=== PATIENT | female | born 1955 | race Caucasian/White ===

== ENCOUNTER → 2024-09-13 | Outpatient (CLI) | payer MEDICARE, SELFPAY ==
--- NOTE | 2024-09-13 16:22 | BI_ITS ---
MAMMOGRAPHY - BILATERAL SCREENING REASON FOR EXAM: Female, 69 years old. Routine annual screening examination. PERTINENT HISTORY: Sister with breast cancer. Mother with breast cancer. TECHNIQUE: Digital bilateral breast patel (3D mammographic acquisition) in the CC and MLO projections. 2-D mediolateral oblique (MLO) and craniocaudad (CC) views of both breasts were obtained. CAD: Full Field Digital Mammography with Computer Added Detection was performed. COMPARISON: Comparison is made with prior outside examination of February 20, 2023. FINDINGS: Breast Composition: There are scattered areas of fibroglandular density. There are no dominant masses or suspicious calcifications. Stable bilateral fat containing axillary lymph nodes. No other significant abnormalities are identified. There has been no significant change since the prior study. BI/SCRN MAMM (CAD)W/PATEL BILAT IMPRESSION: Stable bilateral screening mammogram. Yearly follow-up mammogram recommended. (A) ASSESSMENT CATEGORY: BIRADS Category 2: Benign. A letter regarding these results will be sent to the patient by the facility within 30 days. Approximately 10% of breast cancers are not detected by mammography. A normal mammogram should not delay biopsy of a clinically suspicious abnormality. [id number] Electronically Signed: Alex Acosta MD at 9:35 EST ,
== END | disposition home or self-care (01) ==
LOC: OPBI 16:20
PROVIDERS: PCP Family Medicine; Referring Provider Family Medicine; Visit Provider Family Medicine
DX: Z12.31 Encounter for screening mammogram for malignant neoplasm of breast (principal); Z80.3 Family history of malignant neoplasm of breast
CPT/HCPCS: 77063; 77067

== ENCOUNTER → 2024-12-06 | Outpatient (CLI) | payer MEDICARE, SELFPAY ==
[2024-12-06 15:17] LABS: Absolute Lymphocyte Count 1.34 X10^3/uL (0.83-4.51); Absolute Neutrophil Count 3.2 X10^3/uL (2.0-7.7); Basophil# 0.01 X10^3/uL; Basophil% 0.2 % (0-1); Eosinophil# 0.17 X10^3/uL; Eosinophils% 3.2 % (0-5); Hematocrit 43.9 % (37-47); Hemoglobin 14.7 g/dL (12.0-15.0); Lymphocyte # 1.34 X10^3/ul (0.83-4.51); Lymphocyte % 25.4 % (19-41); Mean Corp Hgb Conc 33.5 g/dL (32-36); Mean Corpuscular Hgb 29.6 pg (27.0-32.0); Mean Corpuscular Volume 88.3 fL (81-99); Mean Platelet Vol. 9.9 fl (6.2-12.0); Monocyte# 0.57 X10^3/uL; Monocyte% 10.8 % (0-10); NRBC Flagged by Analyzer 0 % (0-5); Neutrophil # 3.17 X10^3/uL (2.7-7.7); Neutrophil % 60.2 % (47-70); Platelet Count 245 K/mm3 (150-450); RBC Distribution Width CV 13.2 % (11.6-14.6); RBC Distribution Width SD 42.8 fl (35.1-43.9); Red Blood Count 4.97 M/mm3 (4.2-5.4); White Blood Count 5.3 K/mm3 (4.4-11.0)
[2024-12-06 20:10] LABS: Anion Gap 12 (5-15); BUN 15 mg/dL (4-19); BUN/Creat Ratio 18.3 RATIO (10-20); Carbon Dioxide 23.2 mmol/L (21.0-32.0); Chloride 105 mmol/L (98-108); Cholesterol 239 mg/dL (<=200); EST Glomerular Filtration Rate 79 (>60); Glucose 80 mg/dL (70-99); High Density Lipoprotein 62 mg/dL; Low Density Lipoprotein Calc. 164 mg/dL; Sodium Level 139 mmol/L (133-145); Triglycerides 62 mg/dL; Very Low Density Lipoprotein 12 mg/dL (5-40); Vitamin D,25 Hydroxy 29.9 ng/mL (30-100); cholesterol:hdl ratio screen 3.83
== END | disposition home or self-care (01) ==
PROVIDERS: PCP Family Medicine; Referring Provider Family Medicine; Visit Provider Family Medicine
DX: Z00.00 Encounter for general adult medical examination without abnormal findings (principal)
CPT/HCPCS: 36415; 80048; 80061; 82306; 85025

== ENCOUNTER → 2025-01-05 | Outpatient (CLI) | payer MEDICARE, SELFPAY ==
--- NOTE | 2025-01-05 13:47 | BD_ITS ---
PROCEDURE: DEXA BONE DENSITY STUDY 01/05/2025 REASON FOR EXAM: F, age 69 y/o . Postmenopausal. TECHNIQUE: DXA scan of the lumbar spine and both hips using make and model. REFERENCE LINKS: ISCD Adult Positions COMPARISON: None FINDINGS: BMD and T-SCORES Lumbar spine: 0.663 g/cm2, T-Score -3.5 L1 through L4 Left femoral neck: 0 point 582 g/cm2, T-Score -2.4 Femoral neck comparison data not recommended for monitoring change. Left total hip: 0.668 g/cm2, T-Score -2.2 Right femoral neck: 0.544 g/cm2, T-Score -2.7 Femoral neck comparison data not recommended for monitoring change. Right total hip: 0.6 3 0 g/cm2, T-Score -2.6 Fracture Risk Calculation: FRAX (10-year Fracture Risk) Score: FRAX scores should never be reported in a patient with osteoporosis on DEXA or for any patient that is on bone medication. The patient doesmeet the pharmacological treatment recommendations for prevention of osteoporosis BD/Dexa Bone Density Study IMPRESSION: OSTEOPOROSIS. Recommend follow-up as clinically warranted. Reading Location: [place] [address]
== END | disposition home or self-care (01) ==
LOC: OPBD 13:45
PROVIDERS: PCP Family Medicine; Referring Provider Family Medicine; Visit Provider Family Medicine
DX: Z78.0 Asymptomatic menopausal state (principal)
CPT/HCPCS: 77080

== ENCOUNTER 2025-02-22 12:27 | Day surgery (SDC) | payer MEDICARE, SELFPAY ==
--- NOTE | 2025-02-22 12:43 | HP.PCM_ITS ---
HPI - General General Date of Service: 02/22/25 HPI Narrative ANDI WILLIAMSON, is a 69 F who presents for screening colonoscopy. Patient last colonoscopy was in 2020 at [facility] patient did have polyps at that time. Patient denies any immediate family history of colon cancer?maternal grandmother did have colon cancer but patient's mother also has had colonoscopies. Patient has bowel movements daily denies any blood. Patient denies any chronic abdominal pain/nausea/vomiting/reflux. [facility] Medical History Wears glasses Arthritis High cholesterol Heartburn Non-smoker Leg cramps History of stress test Colon cancer screening Home Medications ?Medication ?Instructions ?Recorded ?Last Taken ?Type ergocalciferol (vitamin D2) 1,250 1,250 mcg PO QWEEK 0 02/21/25 Unknown History mcg (50,000 unit) capsule (Vitamin D2) Allergy/AdvReac Type Severity Reaction Status Date / Time No Known Allergies Allergy Verified 02/22/25 13:06 Surgical History History of oophorectomy History of tonsillectomy Social History Smoking Status: Never smoker Past Medical/Surgical History Planned Operation Planned Operative Procedure(s): COLONOSCOPY Previous Hospitalizations/Surgeries HX Hospitalizations: No Any Problems With Anesthesia: No You/Your Family Experience Fever (Hyperthermia) With Anes: No Cholinesterase deficiency: No Cardiovascular Hx Heart Attack: No Hx Hypertension: No Respiratory Hx Chronic Obstructive Pulmonary Disease (COPD): No Hx Asthma: No Hx Emphysema: No Hx Sleep Apnea: No Hx Respiratory Tract Infection/Cold (presently): No Do You Snore Loudly (louder than talking or can be heard): No Do You Often Feel Tired/ Fatigued/ Sleepy Dring Daytime?: No Has Anyone Observed You Stop Breathing During Sleep?: No Result (for STOP score): Negative Smoking Status: Never smoker Neurological Hx Seizures: No Does patient have nerve stimulator: No Reproduction : No Allergies No Known Allergies Allergy (Verified 02/22/25 13:06) Discharge Is Pt Admitted From a Group Home, or a Shelter: No Who Could Help: TARUN- After D/C, Where Do you Plan to Go: Return Home Physical Exam Const alert, oriented x3 and no apparent distress HEENT normocephalic and head/scalp atraumatic Resp normal respiratory effort Cardio regular rate GI soft to palpation and non-tender; Negative for non-distended Palpation: Negative for guarding Extremity no clubbing, cyanosis or edema Skin no rashes or lesions noted Neuro CN's II-XII intact bilaterally Psych mental status grossly normal Assessment & Plan Assessment/Plan (1) Colon cancer screening: Surgery Risks - Colonoscopy I discussed with the patient the risks of the procedure: Yes Risks Include but are not Limited To: Risks include but are not limited to: Bleeding, perforation requiring further surgery, inability to complete colonoscopy requiring barium enema.
--- NOTE | 2025-02-22 13:06 | PRE.ANES_ITS ---
ASA Classification* ASA Classification ASA Classification: 2 Assessment & Plan Anesthesia* Anesthesia Assessment Anesthesia Assessment: Discussed sedation and/or anesthesia options, risks, benefits, and alternatives with patient/parents/legal guardian/POA. Questions invited. The patient/parents/legal guardian/POA seems to understand and agrees to proceed with anesthesia plan. Reviewed the physical assessment, medical history, allergy history and patient home medications list prior to surgery/procedure/anesthetic and documented any changes. Performed airway and anesthesia risk assessments. Anesthesia Type Anesthesia Type: MAC Anesthesia Focused Assessment* Airway Assessment Mouth opens: >3 cm Mallampati Score: II Focused Labs Anesthesia Preop lab: CBC WBC 5.3 K/mm3 (4.4-11.0) 12/06/24 13:12/06/24 RBC 4.97 M/mm3 (4.2-5.4) 12/06/24 13:23 12/06/24 Hgb 14.7 g/dL (12.0-15.0) 12/06/24 13:12/06/24 Hct 43.9 % (37-47) 12/06/24 13:23 12/06/24 Plt Count 245 K/mm3 (150-450) 12/06/24 13:23 12/06/24 CHEMISTRY Potassium 4.0 mmol/L (3.3-5.1) 12/06/24 13:23 12/06/24 Sodium 139 mmol/L (133-145) 12/06/24 13:23 12/06/24 BUN 15 mg/dL (4-19) 12/06/24 13:23 12/06/24 Creatinine 0.80 mg/dL (0.70-1.20) 12/06/24 13:23 12/06/24 Glucose 80 mg/dL (70-99) 12/06/24 13:23 12/06/24 COAG Pre-Assessment Diagnosis/Proposed Procedure Planned Operative Procedure(s): COLONOSCOPY Anesthesia History 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 When Was Last Pacemaker Check QUESTION #4 FULL TEXT: You/Your Family Experience fever (hyperthermia) with Anesthesia Last Oral Intake Last Oral intake: Last Oral Intake NPO since Meds taken in AM with sips of water? Meds patient instructed to take am of surgery PONV PONV - dry heat cabinet attendant: PONV - dry heat cabinet attendant Female Yes 02/21/25 12:09 HX of Motion Sickness No 02/21/25 12:09 HX of N/V After Surgery Yes 02/21/25 12:09 Non-Smoker Yes 02/21/25 12:09 Duration of Surgery greater No 02/21/25 12:09 than 60 minutes Number of Risk Factors 3 02/21/25 12:09 PONV Score Moderate Risk 02/21/25 12:09 Respiratory Assessment Respiratory Assessment - dry heat cabinet attendant: Respiratory Tract Infection Hx - dry heat cabinet attendant Hx Respiratory Tract Infection No 02/22/25 12:44 STOP Sleep Apnea STOP Sleep Apnea - dry heat cabinet attendant: STOP Sleep Apnea - dry heat cabinet attendant Hx Hypertension No 02/22/25 12:44 Hx Sleep Apnea No 02/22/25 12:44 CPAP BIPAP Do you snore loudly (louder No 02/22/25 12:44 than talking or can be heard Do you often feel tired/ No 02/22/25 12:44 fatigued/ sleepy during daytime? Has anyone observed you stop No 02/22/25 12:44 breathing during sleep? STOP Results Negative 02/22/25 12:44 QUESTION #5 FULL TEXT : Do you snore loudly (louder than talking or can be heard through closed doors)? 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 Specify any problems Hx of Preganancy in last 3 No 02/21/25 12:09 Months Nurse Filling Out Transfusion [facility] 02/21/25 12:09 & Questions: Date: 02/21/25 02/21/25 12:09 Time: 12:10 02/21/25 12:09 Patient unable to answer at this time (ie. confused, unrespo /Reproduction History /Reproductive History - dry heat cabinet attendant: /Reproductive Hx- dry heat cabinet attendant Hx Now No 02/22/25 12:44 Gestational Age (in weeks): EDC: Hx Hx Para Hx Section SAB Active Medications Active Medications: Current Medications Generic Name Dose Route Start Last Admin Trade Name Freq PRN Reason Stop Dose Admin Lactated Ringer's 1,000 mls @ 15 mls/hr 02/22/25 13:00 IV .Q48H DWIGHT PFSH Medical History Wears glasses Arthritis High cholesterol Heartburn Non-smoker Leg cramps History of stress test Colon cancer screening Home Medications ?Medication ?Instructions ?Recorded ?Last Taken ?Type ergocalciferol (vitamin D2) 1,250 1,250 mcg PO QWEEK 0 02/21/25 Unknown History mcg (50,000 unit) capsule (Vitamin D2) Allergy/AdvReac Type Severity Reaction Status Date / Time No Known Allergies Allergy Verified 02/22/25 13:06 Surgical History History of oophorectomy History of tonsillectomy Social History Smoking Status: Never smoker Review of Systems (Anesthesia) ROS Narrative System reviewed and no additional complaints, except as documented.
[2025-02-22 13:07] VITALS: BP 128/74; PULSE 101; RESP 16; TEMP 37.1; O2SAT 97; BMI 25.6
[2025-02-22] MEDS: Lactated Ringers 1,000 ML 15 ML IV (13:17)
--- NOTE | 2025-02-22 14:00 | COLBX_PTH ---
PATIENT: ADNI WILLIAMSON LOC: EN U#:[id number] AGE/SX: 69/F ROOM: RE02/22/[address]: Dr. Piedad Montanez MD : 1955 BED: DIS: 02/22/2025 SPEC #: [id number] RECD: 02/22/25 16:04 STATUS: CLOTILDE RELeila #: [id number] MAGEN: 02/22/25 14:[address]: Piedad Montanez DEPT: SURGICAL PATHOLOGY RECD BY: Naima Mann ENTERED: 02/23/25 07:38 SP TYPE: COLON BX OTHR DR: Mickey Warner MD Tissues: Ascending colon Procedures: Surgery Specimen Level IV HEADER OPERATION: Colonoscopy PRE-OP DIAGNOSIS: Colon cancer screening TISSUE SUBMITTED: A- Ascending colon polyp MICROSCOPIC DIAGNOSIS A. Ascending colon, polyp, biopsy: Tubulovillous adenoma, multiple fragments. MICROSCOPIC DESCRIPTION Slides are reviewed. GROSS DESCRIPTION A. Received in formalin in a container labeled with the patient's name, date of , and ascending colon polyp are multiple maravilla-pink fragments of mucosal tissue measuring 0.8 x 0.6 x 0.3 cm in aggregate. Submitted in toto in A1. SMB 02-23-2025 CPT:81963
--- NOTE | 2025-02-22 15:42 | PCM.POST.ANE ---
Anesthesia: Postop Eval I Current Vital Signs Temperature: 97.2 F Pulse Rate: 78 Blood Pressure: 124/78 Respiratory Rate: 14 Pulse Ox: 97 Oxygen Delivery Method: Room Air Assessment Airway patent: Yes Spontaneous unlabored respirations: Yes Mental status: Awake nausea: No Vomiting: No Anesthesia Complication: No Fluid Hydration Crystalloid volume administer (ml): 400 Total IV fluid infused: 400 Progress Note Anesthesia document: Postop Eval 1 completed: Yes
--- NOTE | 2025-02-22 15:45 | OP.COLON_ITS ---
Patient Name: Blanquita Becker Procedure Date: 02/22/2025 3:13 PM Date of : 1955 Age: 69 Procedure: Colonoscopy Indications: High risk colon cancer surveillance: Personal history of colonic polyps Providers: Piedad Montanez MD Referring MD: Mickey Warner Md Medicines: Monitored Anesthesia Care Patient Profile: This is a 69 year old female. Last Colonoscopy: 2020. Complications: No immediate complications. Procedure: Pre-Anesthesia Assessment: - Prior to the procedure, a History and Physical was performed, and patient medications and allergies were reviewed. The patient's tolerance of previous anesthesia was also reviewed. The risks and benefits of the procedure and the sedation options and risks were discussed with the patient. All questions were answered, and informed consent was obtained. Prior Anticoagulants: The patient has taken no anticoagulant or antiplatelet agents. ASA Grade Assessment: Per anesthesia. After reviewing the risks and benefits, the patient was deemed in satisfactory condition to undergo the procedure. After I obtained informed consent, the scope was passed under direct vision. Throughout the procedure, the patient's blood pressure, pulse, and oxygen saturations were monitored continuously. The Colonoscope was introduced through the anus and advanced to the cecum, identified by appendiceal orifice and ileocecal valve. The colonoscopy was performed without difficulty. The patient tolerated the procedure well. The quality of the bowel preparation was good. Scope In: 3:21:31 PM Scope Withdrawal Time 0 hours 7 minutes 39 seconds Scope Out: 3:39:55 PM Total Procedure Duration Time 0 hours 18 minutes 24 seconds Findings: Hemorrhoids were found on perianal exam. Non-bleeding internal hemorrhoids were found. The hemorrhoids were Grade II (internal hemorrhoids that prolapse but reduce spontaneously). A less than 5 mm polyp was found in the ascending colon. The polyp was semi-pedunculated. The polyp was removed with a hot snare. Resection and retrieval were complete. The exam was otherwise without abnormality. Impression: - Hemorrhoids found on perianal exam. - Non-bleeding internal hemorrhoids. - One less than 5 mm polyp in the ascending colon, removed with a hot snare. Resected and retrieved. - The examination was otherwise normal. Recommendation: - Discharge patient to home. - Resume previous diet. - Continue present medications. - Await pathology results. - Repeat colonoscopy in 5 years for surveillance based on pathology results. Procedure Code(s): --- Professional --- 01627, PT, Colonoscopy, flexible; with removal of tumor(s), polyp(s), or other lesion(s) by snare technique Diagnosis Code(s): --- Professional --- Z86.010, Personal history of colonic polyps K64.1, Second degree hemorrhoids D12.2, Benign neoplasm of ascending colon CPT copyright 2021 [employer]. All rights reserved. The codes documented in this report are preliminary and upon phlebotomy program coordinator review may be revised to meet current compliance requirements. MD Piedad Walden MD 02/22/2025 3:44:47 PM This report has been signed electronically. Number of Addenda: 0 Note Initiated On: 02/22/2025 3:13 PM
--- NOTE | 2025-02-22 15:45 | OP.CCLET_ITS ---
02/22/2025 Mickey Warner Md Re : Colonoscopy procedure for Blanquita Becker Dear Alana This procedure was performed on Saturday, February 22, 2025. My impressions and recommendations are as follows: Impressions : - Hemorrhoids found on perianal exam. - Non-bleeding internal hemorrhoids. - One less than 5 mm polyp in the ascending colon, removed with a hot snare. Resected and retrieved. - The examination was otherwise normal. Recommendations : - Discharge patient to home. - Resume previous diet. - Continue present medications. - Await pathology results. - Repeat colonoscopy in 5 years for surveillance based on pathology results. My findings are described in the full procedure note, which is enclosed. If I can be of further assistance, please feel free to contact me at Doctor phone number(s): , Work: . Sincerely, MD Piedad Walden MD 02/22/2025 3:44:47 PM This report has been signed electronically.
[2025-02-22 15:48] VITALS: BP 125/69; BP 128/74; PULSE 73; RESP 18; TEMP 36.3; O2SAT 99
[2025-02-22 15:50] VITALS: BP 116/65; BP 128/74; PULSE 72; RESP 14; O2SAT 100
[2025-02-22 15:55] VITALS: BP 127/68; BP 128/74; PULSE 70; RESP 14; O2SAT 100
[2025-02-22 16:07] VITALS: BP 124/78; BP 125/69; BP 128/74; PULSE 73; PULSE 78; RESP 14; RESP 18; TEMP 36.1; TEMP 36.2; O2SAT 100; O2SAT 97
--- NOTE | 2025-02-22 16:23 | POSTOPAN2_ITS ---
Anesthesia Postop Eval I Sum Postop Eval Completion status Anesthesia document: Postop Eval 1 completed: Yes Anesthesia Postop Eval I Summary Anesthesia Postop Eval I Summary: Anesthesia Postop Eval I: Assessment Summary Airway patent Yes 02/22/25 15:43 PRIMARY THERAPIST.HBARR Spontaneous unlabored Yes 02/22/25 15:43 PRIMARY THERAPIST.HBARR respirations Mental status Awake 02/22/25 15:43 PRIMARY THERAPIST.HBARR nausea No 02/22/25 15:43 PRIMARY THERAPIST.HBARR Vomiting No 02/22/25 15:43 PRIMARY THERAPIST.HBARR Anesthesia Postop Eval I: Fluid Summary Crystalloid volume administer 400 02/22/25 15:43 PRIMARY THERAPIST.HBARR (ml) Colloids volume administered ( ml) Blood Product volume administered (ml) Total IV fluid infused 400 02/22/25 15:43 PRIMARY THERAPIST.HBARR Anesthesia Postop Eval I: Summary Notes Anesthesia Complication No 02/22/25 15:43 PRIMARY THERAPIST.HBARR Anesthesia Complication Comment: Post-operative progress note Anesthesia: Postop Eval II Evaluation Mental status: Awake Pain Level: 0 nausea: No Vomiting: No
--- NOTE | 2025-02-22 16:23 | PCM.POSTANE2 ---
Anesthesia Postop Eval I Sum Postop Eval Completion status Anesthesia document: Postop Eval 1 completed: Yes Anesthesia Postop Eval I Summary Anesthesia Postop Eval I Summary: Anesthesia Postop Eval I: Assessment Summary Airway patent Yes 02/22/25 15:43 MAIL SORTER AND DELIVERY.HBARR Spontaneous unlabored Yes 02/22/25 15:43 MAIL SORTER AND DELIVERY.HBARR respirations Mental status Awake 02/22/25 15:43 MAIL SORTER AND DELIVERY.HBARR nausea No 02/22/25 15:43 MAIL SORTER AND DELIVERY.HBARR Vomiting No 02/22/25 15:43 MAIL SORTER AND DELIVERY.HBARR Anesthesia Postop Eval I: Fluid Summary Crystalloid volume administer 400 02/22/25 15:43 MAIL SORTER AND DELIVERY.HBARR (ml) Colloids volume administered ( ml) Blood Product volume administered (ml) Total IV fluid infused 400 02/22/25 15:43 MAIL SORTER AND DELIVERY.HBARR Anesthesia Postop Eval I: Summary Notes Anesthesia Complication No 02/22/25 15:43 MAIL SORTER AND DELIVERY.HBARR Anesthesia Complication Comment: Post-operative progress note Anesthesia: Postop Eval II Evaluation Mental status: Awake Pain Level: 0 nausea: No Vomiting: No
[2025-02-22 16:25] VITALS: BP 128/74
== END 2025-02-22 16:39 | disposition home or self-care (01) ==
LOC: EN 12:28 → AC 12:29
PROVIDERS: PCP Family Medicine; Referring Provider Family Medicine; Visit Provider Surgery
PROC: 0DJD8ZZ Inspection of Lower Intestinal Tract, Via Natural or Artificial Opening Endoscopic (ICD-10-PCS; CPT 45378; principal; 2025-02-22 13:55)
DX: Z12.11 Encounter for screening for malignant neoplasm of colon (principal); D12.2 Benign neoplasm of ascending colon; E78.00 Pure hypercholesterolemia, unspecified; Z86.0100 Personal history of colon polyps, unspecified; K64.1 Second degree hemorrhoids
CPT/HCPCS: 45385; 88305

== ENCOUNTER → 2025-08-11 | Outpatient (CLI) | payer MEDICARE, SELFPAY ==
[2025-08-11 15:45] LABS: Vitamin D,25 Hydroxy 70.5 ng/mL (30-100)
== END | disposition home or self-care (01) ==
LOC: MFPLAB 11:09
PROVIDERS: PCP Family Medicine; Visit Provider Family Medicine
DX: E55.9 Vitamin D deficiency, unspecified (principal)
CPT/HCPCS: 36415; 82306